=== PATIENT | male | born 1960 | race Caucasian/White ===

== ENCOUNTER 2021-05-29 11:41 | Inpatient (IN) ==
[2021-05-29 12:09] LABS: Basophils # (auto) 0.03 K/uL (0-0.2); Basophils % (auto) 0.3 %; Eosinophils # (auto) 0.17 K/uL (0-0.5); Eosinophils % (auto) 1.8 %; Hematocrit (blood only) 44.9 % (42-52); Hemoglobin 15.6 g/dL (14.0-18.0); Immature Granulocytes # (auto) 0.01 K/uL (0.00-0.02); Immature Granulocytes % (auto) 0.1 %; Lymphocytes % (auto) 12.6 %; Mean Corpuscular Hgb Conc 34.7 g/dL (32-36); Mean Corpuscular Volume 89.1 fL (80-100); Mean Platelet Volume 11.1 fL (7.4-10.4); Monocytes # (auto) 0.83 K/uL (0.11-0.59); Monocytes % (auto) 8.7 %; Neutrophils # (auto) 7.29 K/uL (1.4-6.5); Neutrophils % (auto) 76.5 %; Platelet Count 260 K/uL (130-400); RDW Coefficient of Variation 12.7 % (11.5-14.5); RDW Standard Deviation 40.8 fL (36.4-46.3); Red Blood Count 5.04 M/uL (4.7-6.1); White Blood Count 9.53 K/uL (4.8-10.8)
[2021-05-29] MEDS ORDERED: ASPIRIN CHEW 324 MG PO STA (12:22)
--- NOTE | 2021-05-29 12:22 | Emergency Department Note ---
Impression & Plan Pulmonary embolism and infarction, Chest pain, Abnormal ECG ED Provider Note NAME: BIANCA BROWNE AGE: 60 SEX: M : 1960 ARRIVES VIA: Walk-In INFORMANT: Patient ED PROVIDER(S): Feliz Jaime DO CHIEF COMPLAINT: Chest Pain HPI: Patient is a 60-year-old gentleman with no significant cardiac history the presents the ER for chest pain and back pain. Symptoms initially started this past Thursday and his right upper back. Going through till Thursday it wrapped around his chest and he had a tightness. Notes that pain has now dissipated and the worst of it was Thursday. He notes now he has pain with breathing. Denies any shortness of breath. No belly pain nausea vomiting or diarrhea. No dysuria urgency or frequency. He admits to chills and having fever 48 hours ago 100.4. No cough or runny nose. No other exacerbating or remitting factors. [facility]. He is fairly active with hiking and riding his bike. Moment does not get any chest pain. Patient denies diabetes, hypertension, hyperlipidemia, CAD, history of sudden at a young age, and smoking. Patient denies swelling of calves, recent trips, history of immobilization or recent surgery, prior history of DVT, hemoptysis, history of malignancy, or control/estrogen use. ROS: See above HPI for pertinent positives & negatives. A total of 10 systems reviewed and were otherwise negative. PAST MEDICAL HISTORY:See Below PAST SURGICAL HISTORY:See Below FAMILY HISTORY:See Below SOCIAL HISTORY:See Below HOME MEDICATIONS:See Below ALLERGIES:See Below VITALS:See Below PHYSICAL EXAMINATION: GENERAL: Sitting up in bed, alert, well appearing, well nourished, no distress, non-toxic EYE EXAM: normal conjunctiva. OROPHARYNX: no exudate, no erythema, lips, buccal mucosa, and tongue normal and mucous membranes are moist NECK: supple, no nuchal rigidity, no adenopathy, non-tender LUNGS: Clear to auscultation. Normal chest wall mechanics HEART: no murmurs, S1 normal and S2 normal ABDOMEN: abdomen soft, non-tender, normo-active bowel sounds, no masses, no rebound or guarding. UPPER EXTREMITIES: upper extremities are grossly normal. LOWER EXTREMITIES: No pitting edema. Calves are equal bilateral. NEURO EXAM: Normal sensorium, cranial nerves II-XII grossly intact, normal speech, no gross weakness of arms, no gross weakness of legs. MEDICAL DECISION MAKING: Patient is a 60-year-old gentleman the presents ER for right-sided chest pain wrapping around to his chest associate with chest heaviness which started this past weekend. Got worse on Thursday but now has been improving. IV was established blood work was obtained. Labs show no significant leukocytosis or anemia. BMP with mild hypokalemia 3.4. Chloride slightly elevated at 103. LFTs bilirubin was unremarkable. Troponin was negative. Covid was negative. CT angio of the chest shows bilateral PEs. Updated patient at bedside. Discussed the risk and benefits of heparin. He denies any bleeding risk factors which were reviewed at length with him at bedside by myself. He was placed on heparin and given heparin bolus. He was discussed with hospitalist admitted for further work-up. Triage Nursing notes reviewed. Limited review of prior medical records performed Vital Signs: reviewed and remarkable for no significant abnormalities Differential diagnosis: Differential diagnoses includes but is not limited to acute coronary syndrome, myocardial infarction, pericarditis, pulmonary embolus, aortic dissection, pneumonia, pneumothorax, musculoskeletal, shingles, esophageal. ER treatment provided: See below Diagnostics interpreted by me: ECG: Sinus rhythm rate 82 Normal axis T wave inversion in the inferior leads with ST depressions as well as T wave inversions in V4 through V6 with ST depressions. Cardiac Monitoring: An order was placed for continuous cardiac monitoring. The monitor shows a rate of 80 with sinus rhythm. Laboratory studies: As stated above and show below. Imaging studies: CT Angio of the chest shows bilateral PEs Consultation(s): none Critical Care: I have personally spent 35 minutes of critical care time in the direct management of this patient. This includes bedside care, interpretation of diagnostic studies, and testing, discussion with consultants, patient, and family members, and other required patient management activities. This 35 minutes is in excess of all separately billable procedures. Past Med/Surg History Medical History (Updated 05/29/21 @ 18:31 by Feliz Jaime DO) No active medical problems Surgical History History of appendectomy History of tonsillectomy and adenoidectomy Hx of vasectomy Family History (Updated 05/29/21 @ 15:34 by Bonnie Mendez PA-C) Father , 66 Lung cancer Mother Breast cancer Social History (Updated 05/29/21 @ 15:34 by Bonnie Mendez PA-C) Smoking Status: Never smoker Hx Alcohol Use: No Hx Substance Use: No Preferred Language: Malian Communication Ability: Effective marital status: Current Living Situation: Spouse current occupational status: employed Feels Safe at Home: Yes Allergies Allergies Allergy/AdvReac Type Severity Reaction Status Date / Time No Known Allergies Allergy Unverified 05/29/21 14:01 Home Meds Home Medications Medication Instructions Recorded Confirmed Tylenol Advil Caff 1 - 2 tabs PO UD PRN 05/29/21 05/29/21 Results & Data (ED) Vital Signs Vital Signs - 24 hr 05/29/21 11:41 05/29/21 11:43 05/29/21 11:49 Temperature 36.6 C Temperature Source Temporal Artery Scan Pulse Rate 80 Pulse Rate [Right] Pulse Rate from SpO2 Sensor Respiratory Rate 16 Respiratory Effort / Characteristics Non-Labored Respiratory Depth Normal Blood Pressure 152/84 H Blood Pressure [Left Arm] Blood Pressure Mean 106 Blood Pressure Mean [Left Arm] Blood Pressure Position [Left Arm] Pulse Oximetry 97 97 96 Oxygen Delivery Method Room Air Room Air Room Air Sepsis Recent Fever Within 48 Hours No Sepsis New/Unexplained Change in Mental Status No Sepsis Action Taken by Nursing No Action Required 05/29/21 11:52 05/29/21 11:54 05/29/21 12:00 Temperature Temperature Source Pulse Rate 79 75 Pulse Rate [Right] 90 Pulse Rate from SpO2 Sensor 79 73 Respiratory Rate 20 18 20 Respiratory Effort / Characteristics Non-Labored Respiratory Depth Normal Blood Pressure 139/93 123/71 Blood Pressure [Left Arm] 139/93 Blood Pressure Mean 108 88 Blood Pressure Mean [Left Arm] 108 Blood Pressure Position [Left Arm] Sitting Pulse Oximetry 97 97 97 Oxygen Delivery Method Room Air Room Air Sepsis Recent Fever Within 48 Hours Sepsis New/Unexplained Change in Mental Status Sepsis Action Taken by Nursing 05/29/21 12:30 05/29/21 13:00 05/29/21 13:33 Temperature Temperature Source Pulse Rate 72 72 69 Pulse Rate [Right] Pulse Rate from SpO2 Sensor 71 74 68 Respiratory Rate 21 23 18 Respiratory Effort / Characteristics Respiratory Depth Blood Pressure 140/87 137/83 Blood Pressure [Left Arm] Blood Pressure Mean 104 101 Blood Pressure Mean [Left Arm] Blood Pressure Position [Left Arm] Pulse Oximetry 97 96 97 Oxygen Delivery Method Sepsis Recent Fever Within 48 Hours Sepsis New/Unexplained Change in Mental Status Sepsis Action Taken by Nursing 05/29/21 13:42 05/29/21 14:22 05/29/21 14:30 Temperature Temperature Source Pulse Rate 70 80 75 Pulse Rate [Right] Pulse Rate from SpO2 Sensor 70 82 75 Respiratory Rate 19 20 20 Respiratory Effort / Characteristics Respiratory Depth Blood Pressure 121/79 Blood Pressure [Left Arm] Blood Pressure Mean 93 Blood Pressure Mean [Left Arm] Blood Pressure Position [Left Arm] Pulse Oximetry 97 97 97 Oxygen Delivery Method Sepsis Recent Fever Within 48 Hours Sepsis New/Unexplained Change in Mental Status Sepsis Action Taken by Nursing Laboratory Data Result diagrams: 05/29/21 11:55 05/29/21 11:55 Lab Results 05/29/21 05/29/21 05/29/21 Range/Units 11:55 11:55 11:55 WBC 9.53 (4.8-10.8) K/uL RBC 5.04 (4.7-6.1) M/uL Hgb 15.6 (14.0-18.0) g/dL Hct 44.9 (42-52) % MCV 89.1 (80-100) fL MCH 31.0 (25-34) pg MCHC 34.7 (32-36) g/dL RDW Std Deviation 40.8 (36.4-46.3) fL RDW Coeff of Ravin 12.7 (11.5-14.5) % Plt Count 260 (130-400) K/uL MPV 11.1 H (7.4-10.4) fL Immature Gran % (Auto) 0.1 % Neut % (Auto) 76.5 % Lymph % (Auto) 12.6 % Motley % (Auto) 8.7 % Eos % (Auto) 1.8 % Baso % (Auto) 0.3 % Neut # (Auto) 7.29 H (1.4-6.5) K/uL Lymph # (Auto) 1.20 (1.2-3.4) K/uL Motley # (Auto) 0.83 H (0.11-0.59) K/uL Eos # (Auto) 0.17 (0-0.5) K/uL Baso # (Auto) 0.03 (0-0.2) K/uL Immature Gran # (Auto) 0.01 (0.00-0.02) K/uL PT 10.1 (9.0-12.0) Seconds INR 1.0 (0.9-1.1) APTT 25.9 (21.0-31.0) Seconds PTT Ratio 1.0 D-Dimer 2700 H* (0-500) ug/L FEU Sodium 139 (136-145) mmol/L Potassium 3.4 L (3.5-5.1) mmol/L Chloride 108 H (98-107) mmol/L Carbon Dioxide 30 (21-32) mmol/L Anion Gap 1.0 L (3-11) BUN 15 (7-18) mg/dl Creatinine 0.92 (0.6-1.4) mg/dl Est Cr Clr Drug Dosing 84.7 ml/min Est GFR ( Amer) 105.9 ml/min Est GFR (Non-Af Amer) 91.4 ml/min BUN/Creatinine Ratio 16.3 (10-20) Glucose 132 H (70-99) mg/dl Calcium 9.2 (8.5-10.1) mg/dl Total Bilirubin 0.6 (0.2-1) mg/dl AST 12 L (15-37) U/L ALT 18 (12-78) U/L Alkaline Phosphatase 76 (45-117) U/L Troponin I < 0.015 (0-0.045) ng/ml Total Protein 7.4 (6.4-8.2) gm/dl Albumin 3.5 (3.4-5.0) gm/dl Globulin 3.9 (2.5-4.0) gm/dl Albumin/Globulin Ratio 0.9 (0.9-2) Administered Medications Heparin Sodium/Dextrose (Heparin Sodium/Dextrose) 25,000 units in 500 mls @ 26 mls/hr IV .[id number] [facility]; Protocol Stop: 06/28/21 14:14 Last Admin: 05/29/21 14:25 Dose: 1,300 units/hr, 26 mls/hr Documented by: [id number] Cosigned by: [id number] Discontinued Medications Aspirin (Aspirin Chew 324 Mg) 324 mg PO NOW STA Stop: 05/29/21 12:23 Last Admin: 05/29/21 12:27 Dose: 324 mg Documented by: [id number] Heparin Sodium (Porcine) (Heparin Sod (Porcine) 1000 Unit/Ml) 6,000 units IV NOW ONE Stop: 05/29/21 14:31 Last Admin: 05/29/21 14:22 Dose: 6,000 units Documented by: [id number] Cosigned by: [id number] Heparin Sodium/Dextrose (Heparin Iv Adult Wt-Based Standard With Bolus Protocol) 1 ea IV NOW STA; Protocol Stop: 05/29/21 14:00 Last Admin: 05/29/21 16:06 Dose: 1 ea Documented by: [id number] Ioversol (Optiray 320 125ml) 118 ml IV ONCE ONE Stop: 05/29/21 13:51 Last Admin: 05/29/21 13:51 Dose: 118 ml Documented by: [id number] Potassium Chloride (Potassium Chloride Crtab 20 Meq Tabcr) 40 meq PO NOW STA Stop: 05/29/21 15:57 Last Admin: 05/29/21 17:36 Dose: 40 meq Documented by: [id number] Imaging Data Radiologist's Impression: Chest X-Ray 05/29/21 11:59 XR chest 1V portable CLINICAL HISTORY: Chest Pain COMPARISON STUDY: No previous studies for comparison. FINDINGS: Lung volumes are normal. There is no pneumothorax. There may be a small right pleural effusion. Note is made of mild right lower lung airspace opacity. There is pulmonary vascular congestion. Cardiac size is normal. IMPRESSION: 1. Mild right lower lung airspace opacity. This favors an infectious process. Radiographic follow up to ensure resolution is recommended. 2. Pulmonary vascular congestion. Suspected small right pleural effusion. ACT 112: Negative or not required by law. Electronically signed by: Parveen Trujillo M.D. 05/29/2021 12:23 PM Chest CTA 05/29/21 13:21 CHEST CTA for PULMONARY ARTERIES CT DOSE: 464.79 mGycm HISTORY: Atypical chest pain with breathing abn ekg TECHNIQUE: Multiaxial CT images of the chest were performed following the intravenous administration of contrast to evaluate the pulmonary arteries. Maximal intensity projection images were also obtained. A dose lowering techniq ue was utilized adhering to the principles of ALARA. COMPARISON STUDY: Chest x-ray 05/29/2021. FINDINGS: Normal caliber thoracic aorta with no evidence for dissection. There is a small right pleural effusion. No pericardial effusions. No evidence for right-sided heart strain. Multiple pulmonary emboli seen within the right lower lobar and right lower lobe segmental/subsegmental pulmonary arteries. Small nonocclusive linear filling defect seen within the left lower lobe posterior basal pulmonary artery consistent with an additional pulmonary embolus. No pneumothorax. The central airways are patent. Mild nodular thickening along the major fissures which is likely benign. Groundglass and consolidative peripheral airspace opacities within the base the right lower lobe consistent with pulmonary infarcts. There is also a small focal peripheral airspace opacity within the left lower lobe posteriorly. This also favors a small pulmonary infarct. No fractures within the visualized osseous structures. A single mildly enlarged right hilar lymph node measuring 1 cm. This may be reactive. No mediastinal or left hilar lymphadenopathy. Normal esophagus. Limited views of the upper abdomen demonstrate a normal liver and spleen. IMPRESSION: 1. Bilateral lower lobe pulmonary emboli with associated pulmonary infarcts, right greater than left. 2. Small right pleural effusion. ACT 112: Negative or not required by law. Electronically signed by: Naresh Plunkett M.D. 05/29/2021 2:11 PM Discharge Plan Visit Data Chief Complaint: Chest Pain Stated Complaint: CHEST PAIN, ABNORMAL EKG ED Provider: Feliz Jaime Discharge Problem: Pulmonary embolism and infarction, Chest pain, Abnormal ECG Patient Disposition: Admitted As Inpatient Discharge Problem: Chest pain Qualifiers: Chest pain type: unspecified Qualified Code(s): R07.9 - Chest pain, unspecified
[2021-05-29 12:25] LABS: Partial Thromboplastin Time 25.9 Seconds (21.0-31.0); Prothrombin Time 10.1 Seconds (9.0-12.0)
--- NOTE | 2021-05-29 12:25 | XRay Report ---
XR chest 1V portable CLINICAL HISTORY: Chest Pain COMPARISON STUDY: No previous studies for comparison. FINDINGS: Lung volumes are normal. There is no pneumothorax. There may be a small right pleural effus ion. Note is made of mild right lower lung airspace opacity. There is pulmonary vascular congestion. Cardiac size is normal. IMPRESSION: 1. Mild right lower lung airspace opacity. This favors an infectious process. Radiographic follow up to ensure resolution is recommended. 2. Pulmonary vascular congestion. Suspected small right pleural effusion. ACT 112: Negative or not required by law. Electronically signed by: Parveen Trujillo M.D. 05/29/2021 12:23 PM
[2021-05-29 12:27] LABS: Alanine Aminotransferase 18 U/L (12-78); Albumin Level 3.5 gm/dl (3.4-5.0); Aspartate Aminotransferase 12 U/L (15-37); BUN Creatinine Ratio 16.3 (10-20); Blood Urea Nitrogen 15 mg/dl (7-18); Calcium 9.2 mg/dl (8.5-10.1); Carbon Dioxide 30 mmol/L (21-32); Chloride 108 mmol/L (98-107); Creatinine Clr Calc Pharmacy 84.7 ml/min; Est GFR (African American) 105.9 ml/min; Est GFR (Non-African American) 91.4 ml/min; Glucose 132 mg/dl (70-99); Potassium 3.4 mmol/L (3.5-5.1); Sodium 139 mmol/L (136-145)
[2021-05-29 12:31] LABS: Albumin Globulin Ratio 0.9 (0.9-2); Alkaline Phosphatase 76 U/L (45-117); Bilirubin,Total 0.6 mg/dl (0.2-1); Globulin 3.9 gm/dl (2.5-4.0); Total Protein 7.4 gm/dl (6.4-8.2); Troponin I < 0.015 ng/ml (0-0.045)
[2021-05-29 13:42] LABS: D Dimer 2700 ug/L FEU (0-500)
[2021-05-29] MEDS ORDERED: OPTIRAY 320 125ml IV ONE (13:50)
[2021-05-29] MEDS ORDERED: Heparin IV Adult Wt-Based Standard WITH Bolus Protocol IV STA (13:59)
--- NOTE | 2021-05-29 14:13 | CT Scan Report ---
CHEST CTA for PULMONARY ARTERIES CT DOSE: 464.79 mGycm HISTORY: Atypical chest pain with breathing abn ekg TECHNIQUE: Multiaxial CT images of the chest were performed following the intravenous administration of contrast to evaluate the pulmonary arteries. Maximal intensity projection images were also obtaine d. A dose lowering technique was utilized adhering to the principles of ALARA. COMPARISON STUDY: Chest x-ray 05/29/2021. FINDINGS: Normal caliber thoracic aorta with no evidence for dissection. There is a small right pleur al effusion. No pericardial effusions. No evidence for right-sided heart strain. Multiple pulmonary e mboli seen within the right lower lobar and right lower lobe segmental/subsegmental pulmonary arterie s. Small nonocclusive linear filling defect seen within the left lower lobe posterior basal pulmonary artery consistent with an additional pulmonary embolus. No pneumothorax. The central airways are pat ent. Mild nodular thickening along the major fissures which is likely benign. Groundglass and consoli dative peripheral airspace opacities within the base the right lower lobe consistent with pulmonary i nfarcts. There is also a small focal peripheral airspace opacity within the left lower lobe posterior ly. This also favors a small pulmonary infarct. No fractures within the visualized osseous structures . A single mildly enlarged right hilar lymph node measuring 1 cm. This may be reactive. No mediastina l or left hilar lymphadenopathy. Normal esophagus. Limited views of the upper abdomen demonstrate a n ormal liver and spleen. IMPRESSION: 1. Bilateral lower lobe pulmonary emboli with associated pulmonary infarcts, right greater than left. 2. Small right pleural effusion. ACT 112: Negative or not required by law. Electronically signed by: Naresh Plunkett M.D. 05/29/2021 2:11 PM
[2021-05-29] MEDS ORDERED: HEPARIN SOD (PORCINE) 1000 UNIT/ML IV ONE ×2 (14:14→14:30)
[2021-05-29] MEDS: HEPARIN SODIUM/DEXTROSE 25,000 UNITS/500 ML BAG IV SCH (14:25)
--- NOTE | 2021-05-29 14:54 | History & Physical Report ---
Date of Service May 29, 2021 Assessment & Plan (1) Pulmonary embolism and infarction: (2) Chest pain: (3) Abnormal ECG: (4) Hypokalemia: Plan: Admit to PCU IV Heparin Bolus and gtt started obtain echocardiogram consult pulmonary 12/18 to infarcts discussed with patient regarding warfarin vs DOACS, wishes to pursue DOAC if able will need hypercoagulable work up with hematology as outpt is up to date with colonoscopy 03/2014 add psa to a.m. labs replete potassium with 40meq KCL ecg abnormal - compared to ecg 10/2013 appears similar Dispo: PCU PCP: Dr. Ramez Phelps FULL CODE Pt was seen and examined in collaboration with Dr. Spencer, please see addendum History of Present Illness Chief Complaint: Right-sided chest pain x5 days. Primary Care Provider: Lissett Phelps DO This is a 60-year-old otherwise healthy male who has no significant past medical history and presents to ED secondary to right-sided chest pain x5 days. Symptoms started on Thursday when he was unable to sleep. When he did go to lay down he noticed a sharp pain on the right lateral side of his chest. Pain was made better with sitting up. Pain persisted for the next 2 days and then migrated to the right anterior chest wall. He also complained of pain with deep breathing. He thought maybe he, pulled or strained something," but there was no trauma. Yesterday he noticed he had a fever of 100.4. He has been fully vaccinated for Covid since March 29. He was concerned maybe he had a variant of Covid despite being vaccinated secondary to fever and also complained of being sweaty and body aches. He was to go back to work today but woke up with significant right-sided shoulder pain, sweating and opted to seek urgent care. He was directed to ED. In ED he remained hemodynamically stable saturating normally on room air. His CBC was generally unremarkable. He had elevated D- dimer at 2700. His potassium was mildly low at 3.4. His troponin was normal. His chest CTA was consistent with bilateral lower lobe pulmonary emboli with associated pulmonary infarcts, right greater than left and small right pleural effusion. He was appropriate started on IV heparin and recommended for admission. Currently he denies any fever, chills, sweats, lightheadedness, dizziness, syncope, chest pain at rest, shortness of breath, cough, hemoptysis, nausea, vomiting, abdominal pain, change in his bowel or urinary habits. His appetite is otherwise been normal. Patient is very healthy at baseline and he does not take any prescription medications. He is very active with hiking, hunting and mountain biking. Even despite having a right shoulder and chest wall pain he was still able to do outside yard work, cleanup storm damage and take out the trash. He denies any known clotting disorder. He he thinks his sister remotely had a clotting issue and was on Coumadin in the past but is not entirely sure. He has not seen PCP in few years but is up-to-date with his colonoscopy. He has not had a PSA screening since 2012 Allergies Allergy/AdvReac Type Severity Reaction Status Date / Time No Known Allergies Allergy Unverified 05/29/21 14:01 Home Medications Medication Instructions Recorded Confirmed Type Tylenol Advil Caff 1 - 2 tabs PO UD PRN 05/29/21 05/29/21 History Past Med/Surg History Medical History (Updated 05/29/21 @ 18:31 by Feliz Jaime DO) No active medical problems Surgical History History of appendectomy History of tonsillectomy and adenoidectomy Hx of vasectomy Family History (Updated 05/29/21 @ 15:34 by Bonnie Mendez PA-C) Father , 66 Lung cancer Mother Breast cancer Social History (Updated 05/29/21 @ 15:34 by Bonnie Mendez PA-C) Smoking Status: Never smoker Second Hand Exposure: Yes (father smoked in child de anda); Do You Dip or Chew Tobacco: No; Tobacco Cessation Education Requested by Patient: No Hx Alcohol Use: Yes Alcohol type: wine Hx Substance Use: No Preferred Language: Slovenian Communication Ability: Effective Discovery Manager Required: No Beliefs That Will Affect Care: None marital status: Current Living Situation: Spouse current occupational status: employed Other Information That Helps Us Care for You: No Feels Safe at Home: Yes Safety Concerns: Feels Safe At This Time Assistive Devices: Glasses Review of Systems Review of Systems: All systems reviewed & are unremarkable except as noted in HPI & below Physical Exam Physical Exam: Constitutional: WD/WN, vitals as above, NAD, sitting up in bed, pleasant, conversing easily Head: Normocephalic, Atraumatic Eyes: PERRL, conjunctivae normal, anicteric sclerae ENMT: external ear and nose normal, oropharynx normal Neck: trachea midline, no thyromegaly normal visual inspection Respiratory: normal respiratory effort, lungs clear to auscultation, no wheeze, rales, rhonchi. Normal insp/exp effort, no accessory muscle use Cardiovascular: RRR, no murmur, no edema Vessels: no JVD or carotid bruit Chest: normal inspection of chest Abdomen: normal bowel sounds, soft, nontender, no hepatosplenomegaly Musculoskeletal: no cyanosis or clubbing, extremities motor strength 5/5 Skin: no rashes, warm and dry normal turgor Neurologic: PERRL, EOMI, accommodation nl, no face palsy, no dysarthria CN's II-XI intact bilaterally and moves all extremities Psychiatric: A+Ox3, euthymic affect Lymphatic: no cervical or axillary lymphadenopathy : deferred Results & Data Results & Data ([facility]) Vital Signs (Past 12 Hours) Vital Signs Temp Pulse Pulse Resp BP BP Pulse Ox 05/29/21 12:30 72 21 140/87 97 05/29/21 12:00 75 20 123/71 97 05/29/21 11:54 90 18 139/93 97 05/29/21 11:52 79 20 139/93 97 05/29/21 11:49 96 05/29/21 11:43 36.6 C 80 16 152/84 H 97 05/29/21 11:41 97 Diagnostic Findings Chest X-Ray 05/29/21 11:59 XR chest 1V portable CLINICAL HISTORY: Chest Pain COMPARISON STUDY: No previous studies for comparison. FINDINGS: Lung volumes are normal. There is no pneumothorax. There may be a small right pleural effusion. Note is made of mild right lower lung airspace opacity. There is pulmonary vascular congestion. Cardiac size is normal. IMPRESSION: 1. Mild right lower lung airspace opacity. This favors an infectious process. Radiographic follow up to ensure resolution is recommended. 2. Pulmonary vascular congestion. Suspected small right pleural effusion. ACT 112: Negative or not required by law. Electronically signed by: Parveen Trujillo M.D. 05/29/2021 12:23 PM Chest CTA 05/29/21 13:21 CHEST CTA for PULMONARY ARTERIES CT DOSE: 464.79 mGycm HISTORY: Atypical chest pain with breathing abn ekg TECHNIQUE: Multiaxial CT images of the chest were performed following the intravenous administration of contrast to evaluate the pulmonary arteries. Maximal intensity projection images were also obtained. A dose lowering technique was utilized adhering to the principles of ALARA. COMPARISON STUDY: Chest x-ray 05/29/2021. FINDINGS: Normal caliber thoracic aorta with no evidence for dissection. There is a small right pleural effusion. No pericardial effusions. No evidence for right-sided heart strain. Multiple pulmonary emboli seen within the right lower lobar and right lower lobe segmental/subsegmental pulmonary arteries. Small nonocclusive linear filling defect seen within the left lower lobe posterior basal pulmonary artery consistent with an additional pulmonary embolus. No pneumothorax. The central airways are patent. Mild nodular thickening along the major fissures which is likely benign. Groundglass and consolidative peripheral airspace opacities within the base the right lower lobe consistent with pulmonary infarcts. There is also a small focal peripheral airspace opacity within the left lower lobe posteriorly. This also favors a small pulmonary infarct. No fractures within the visualized osseous structures. A single mildly enlarged right hilar lymph node measuring 1 cm. This may be reactive. No mediastinal or left hilar lymphadenopathy. Normal esophagus. Limited views of the upper abdomen demonstrate a normal liver and spleen. IMPRESSION: 1. Bilateral lower lobe pulmonary emboli with associated pulmonary infarcts, right greater than left. 2. Small right pleural effusion. ACT 112: Negative or not required by law. Electronically signed by: Naresh Plunkett M.D. 05/29/2021 2:11 PM Medications Administered Medication List Heparin Sodium/Dextrose (Heparin Sodium/Dextrose) 25,000 units in 500 mls @ 26 mls/hr IV .[id number] [facility]; Protocol Stop: 06/28/21 14:14 Last Admin: 05/29/21 14:25 Dose: 1,300 units/hr, 26 mls/hr Documented by: [id number] Cosigned by: [id number] Discontinued Medications Aspirin (Aspirin Chew 324 Mg) 324 mg PO NOW STA Stop: 05/29/21 12:23 Last Admin: 05/29/21 12:27 Dose: 324 mg Documented by: [id number] Heparin Sodium (Porcine) (Heparin Sod (Porcine) 1000 Unit/Ml) 6,000 units IV NOW ONE Stop: 05/29/21 14:31 Last Admin: 05/29/21 14:22 Dose: 6,000 units Documented by: [id number] Cosigned by: [id number] Ioversol (Optiray 320 125ml) 118 ml IV ONCE ONE Stop: 05/29/21 13:51 Last Admin: 05/29/21 13:51 Dose: 118 ml Documented by: [id number] ECG Rate (beats per minute): 82 Rhythm: sinus with SA Findings: + ST depression (inferior and laterally) and + T-wave inversion COVID-19 Results Results COVID-19 Adm Lab Results: RBC 5.04 M/uL (4.7-6.1) 05/29/21 WBC 9.53 K/uL (4.8-10.8) 05/29/21 Hgb 15.6 g/dL (14.0-18.0) 05/29/21 Hct 44.9 % (42-52) 05/29/21 Plt Count 260 K/uL (130-400) 05/29/21 Neutrophils (%) (Auto) 76.5 % 05/29/21 Lymphocytes (%) (Auto) 12.6 % 05/29/21 Monocytes # (Auto) 0.83 K/uL (0.11-0.59) H 05/29/21 Eosinophils # (Auto) 0.17 K/uL (0-0.5) 05/29/21 Immature Granulocyte % (Auto) 0.1 % 05/29/21 Neutrophils # (Auto) 7.29 K/uL (1.4-6.5) H 05/29/21 Lymphocytes # (Auto) 1.20 K/uL (1.2-3.4) 05/29/21 Monocytes # (Auto) 0.83 K/uL (0.11-0.59) H 05/29/21 Eosinophils # (Auto) 0.17 K/uL (0-0.5) 05/29/21 Basophils # (Auto) 0.03 K/uL (0-0.2) 05/29/21 Immature Granulocyte # (Auto) 0.01 K/uL (0.00-0.02) 05/29/21 Na 139 mmol/L (136-145) 05/29/21 K 3.4 mmol/L (3.5-5.1) L 05/29/21 Cl 108 mmol/L (98-107) H 05/29/21 CO2 30 mmol/L (21-32) 05/29/21 Anion Gap 1.0 (3-11) L 05/29/21 BUN 15 mg/dl (7-18) 05/29/21 Creatinine 0.92 mg/dl (0.6-1.4) 05/29/21 BUN/Creatinine Ratio 16.3 (10-20) 05/29/21 Glucose Level 132 mg/dl (70-99) H 05/29/21 Ca 9.2 mg/dl (8.5-10.1) 05/29/21 Total Bilirubin 0.6 mg/dl (0.2-1) 05/29/21 AST/SGOT 12 U/L (15-37) L 05/29/21 ALT/SGPT 18 U/L (12-78) 05/29/21 Alkaline Phosphatase 76 U/L (45-117) 05/29/21 Total Protein 7.4 gm/dl (6.4-8.2) 05/29/21 Albumin 3.5 gm/dl (3.4-5.0) 05/29/21 Globulin 3.9 gm/dl (2.5-4.0) 05/29/21 Albumin/Globulin Ratio 0.9 (0.9-2) 05/29/21 Troponin I < 0.015 ng/ml (0-0.045) 05/29/21 D-Dimer 2700 ug/L FEU (0-500) H* 05/29/21 PTT 25.9 Seconds (21.0-31.0) 05/29/21 INR 1.0 (0.9-1.1) 05/29/21 COVID-19 PCR NEGATIVE (Negative) 05/29/21 Chest X-Ray 05/29/21 Code Status & VTE Plan Code Status Full Code VTE Prophylaxis Plan VTE Prophylaxis will be ordered: No Supervising Physician Co-Signing Physician Notes Patient is a 60-year-old male with no significant past medical history presents with history of right-sided chest pain since 5 days duration. He also states having poor sleep secondary to the pain. Chest pain is positional, pleuritic in nature. Reports associated fever, diaphoresis. Please review HPI for complete details of presentation. He was noted to have bilateral pulmonary emboli, pulmonary infarcts on CTA. Denies any history of bleeding. On exam patient is moderately built and nourished, no apparent distress, normocephalic atraumatic, lungs are clear to auscultation, normal breath sounds, S1-S2, no murmur, abdomen soft, nontender, normal bowel sounds, alert, awake, oriented, grossly no focal deficits, no pedal edema. Patient is admitted for management of acute pulmonary embolism, infarcts, hypokalemia. Agree with starting IV heparin for now. Also noted abnormal EKG. Will trend cardiac enzymes, chest resting echo and repeat EKG in the morning. I personally reviewed the record. Patient is interviewed and examined at bedside. Patient's care is coordinated with Bonnie Mendez PA-C. Please refer to the documentation above for details of patient's presentation and for discussion of other issues.
[2021-05-29] MEDS ORDERED: POTASSIUM CHLORIDE CRTAB 20 MEQ TABCR PO STA (15:56)
--- NOTE | 2021-05-29 17:14 | Electrocardiogram Report ---
Test Reason : Blood Pressure : / mmHG Vent. Rate : 082 BPM Atrial Rate : 082 BPM P-R Int : 146 ms QRS Dur : 078 ms QT Int : 390 ms P-R-T Axes : 077 014 240 degrees QTc Int : 455 ms Sinus rhythm with marked sinus arrhythmia Abnormal ECG No previous ECGs available Confirmed by Sarbjit Philip ([id number]) on 05/29/2021 5:14:14 PM Referred By: REFERRED SELF Confirmed By:Kevin Philip
[2021-05-29] MEDS ORDERED: ACETAMINOPHEN 325 MG TAB PO PRN (19:15)
[2021-05-29] MEDS ORDERED: MAGNESIUM HYDROXIDE SUSP 30 ML UDC PO PRN (19:15)
[2021-05-29] MEDS ORDERED: ONDANSETRON INJ 2 MG/ML 2 ML VIAL IV PRN (19:15)
[2021-05-29] MEDS ORDERED: ALUMINUM/MAGNESIUM SUSP 30 ML UDC PO PRN (19:15)
[2021-05-29] MEDS ORDERED: POLYETHYLENE (MIRALAX) 17 GM PACK PO PRN (19:15)
[2021-05-29 20:44] LABS: Partial Thromboplastin Ratio 2.3
[2021-05-29 20:48] LABS: Partial Thromboplastin Time 61.8 Seconds (21.0-31.0)
--- NOTE | 2021-05-29 21:24 | Ultrasound Report ---
ULTRASOUND BILATERAL LOWER EXTREMITY VENOUS CLINICAL HISTORY: Pulmonary embolus. COMPARISON STUDY: No priors. TECHNIQUE: Real-time, grayscale, and color Doppler sonography of the deep veins of the right and left lower extremity was performed from the inguinal crease to the calf. Compression and augmentation wer e utilized. FINDINGS: There is no sonographic evidence of deep venous thrombosis identified in the right or left lower extremity. The common femoral, superficial femoral, and popliteal veins are patent and normally compressible bilaterally. The greater saphenous vein and the profunda femoris vein at the junction w ith the common femoral vein are clear in both legs. The visualized calf veins are patent bilaterally. A popliteal cyst on the right measures 2.3 x 0.7 x 1.1 cm. IMPRESSION: 1. There is no sonographic evidence of deep venous thrombosis identified in the right or left lower e xtremity. 2. Small right-sided Wylie's cyst. ACT 112: Negative or not required by law. Electronically signed by: Erick Hernandez M.D. 05/29/2021 9:23 PM
[2021-05-30 05:52] LABS: Hematocrit (blood only) 42.9 % (42-52); Hemoglobin 15.2 g/dL (14.0-18.0); Mean Corpuscular Hgb Conc 35.4 g/dL (32-36); Mean Corpuscular Volume 87.6 fL (80-100); Mean Platelet Volume 10.9 fL (7.4-10.4); Platelet Count 239 K/uL (130-400); RDW Coefficient of Variation 12.5 % (11.5-14.5); RDW Standard Deviation 40.2 fL (36.4-46.3); White Blood Count 9.71 K/uL (4.8-10.8)
[2021-05-30 06:18] LABS: Albumin Level 3.2 gm/dl (3.4-5.0); BUN Creatinine Ratio 17.1 (10-20); Bilirubin,Total 0.7 mg/dl (0.2-1); Calcium 8.8 mg/dl (8.5-10.1); Creatinine Clr Calc Pharmacy 96.2 ml/min; Est GFR (African American) 113.5 ml/min; Magnesium 2.1 mg/dl (1.8-2.4); Potassium 3.9 mmol/L (3.5-5.1)
[2021-05-30 06:20] LABS: Partial Thromboplastin Ratio 2.2
[2021-05-30 06:21] LABS: Albumin Globulin Ratio 0.8 (0.9-2); Globulin 3.8 gm/dl (2.5-4.0); Prostate Specific Antigen 3.98 ng/ml (0-4)
[2021-05-30 06:28] LABS: Partial Thromboplastin Time 56.9 Seconds (21.0-31.0)
[2021-05-30 07:42] LABS: Estimated Average Glucose 100 mg/dl; Hemoglobin A1C 5.1 % (4.5-5.6)
--- NOTE | 2021-05-30 08:26 | Pulmonary Consultation ---
Date of Consultation May 30, 2021 Assessment & Plan (1) Pulmonary embolism and infarction: Impression: 60-year-old male with idiopathic PE and likely pulmonary infarct. He is hemodynamically stable and requires no supplemental oxygen. Given his family history, thrombophilia is likely. There do not appear to be clear provoking events. Recommendations: 1. Acute PE: Agree with anticoagulation. The patient is currently on heparin. Can consider transition to DOAC or Coumadin based on cost and patient preference. Would recommend least 6 months of anticoagulation. 2. Pulmonary infarct: Would recommend a follow-up noncontrast CT of the chest in 6 to 8 weeks to ensure resolution of the lower lobe airspace opacity. 3. Likely hypercoagulable state: We will check factor V Leiden, homocystine, and prothrombin gene mutation. The rest of his thrombophilia panel can be assessed once he is off anticoagulation. Outpatient hematology oncology consultation may be appropriate. His age-appropriate cancer screening appears to be up-to-date. Obtaining additional information from his sister may be beneficial. 4. Pain control with nonsteroidal anti-inflammatories as needed. 5. The patient appears to be doing quite well clinically. From a pulmonary standpoint can likely be dismissed from the hospital once outpatient follow-up is arranged with his primary care provider and he has appropriate anticoagulation plan in place. We would be happy to see him back in the pulmonary clinic for his follow-up CT scans with a pulmonary infarct if needed. Thanks for the opportunity participating in the care of this patient. Feel free to contact us if we can be of additional assistance. (2) Chest pain: Chest pain type: unspecified Qualified Code(s): R07.9 - Chest pain, unspecified History of Present Illness Attending Physician: Apollo Spencer MD History of Present Illness Asked by hospitalist to evaluate this patient with PE and pulmonary infarct. History is obtained from review electronic medical record as well as discussion with the patient. Patient is a 60-year-old male who presented to the emergency room yesterday with about 5-day history of right-sided chest discomfort radiating to the front and up to the shoulder. He was studied in the emergency room with a CT angiogram demonstrating significant filling defects on the right side with peripheral pleural-based opacity suggestive of pulmonary infarct. He was admitted and placed on heparin. He is been hemodynamically stable. He is never required supplemental oxygen. Patient reports that his sister has a clotting disorder although he is unclear what her diagnosis is. She is apparently been on anticoagulation previously and reportedly had what sounds like IVC filter placed. The patient has no prior history of bleeding or clotting diathesis. He is relatively healthy and takes no medications on a regular basis. He had a colonoscopy performed about a years ago which reportedly was negative. He is a non-smoker. He did travel to [place] by car back in April but states that it took 2 days to get down there and he was out walking around frequently. No other prolonged immobilization. No history of trauma. The patient denies any syncope presyncope or episodes of graying out. No palpitations. He denies calf pain or swelling. Allergies Allergy/AdvReac Type Severity Reaction Status Date / Time No Known Allergies Allergy Unverified 05/29/21 14:01 Home Medications Medication Instructions Recorded Confirmed Type Tylenol Advil Caff 1 - 2 tabs PO UD PRN 05/29/21 05/29/21 History Patient History Medical History (Updated 05/29/21 @ 18:31 by Feliz Jaime DO) No active medical problems Surgical History History of appendectomy History of tonsillectomy and adenoidectomy Hx of vasectomy Family History (Updated 05/29/21 @ 15:34 by Bonnie Mendez PA-C) Father , 66 Lung cancer Mother Breast cancer Social History (Updated 05/29/21 @ 15:34 by Bonnie Mendez PA-C) Smoking Status: Never smoker Second Hand Exposure: Yes (father smoked in child de anda); Do You Dip or Chew Tobacco: No; Tobacco Cessation Education Requested by Patient: No Hx Alcohol Use: Yes Alcohol type: wine Hx Substance Use: No Preferred Language: Croatian Communication Ability: Effective Software Architect Required: No Beliefs That Will Affect Care: None marital status: Current Living Situation: Spouse current occupational status: employed Other Information That Helps Us Care for You: No Feels Safe at Home: Yes Safety Concerns: Feels Safe At This Time Assistive Devices: Glasses Review of Systems Review of Systems: All systems reviewed & are unremarkable except as noted in HPI & below Physical Exam Constitutional: WD/WN, vitals as above Neck: trachea midline, no thyromegaly Respiratory: normal respiratory effort, lungs clear to auscultation Cardiovascular: RRR, no murmur, no edema Gastrointestinal (Abdomen): normal bowel sounds, soft, nontender, no hepatosplenomegaly Musculoskeletal: Extremities: extremities normal to inspection Skin: no rashes, warm and dry Neurologic: Nonfocal exam Lymphatic: no cervical lymphadenopathy Results & Data Results & Data ([facility]) Vital Signs (Past 12 Hours) Vital Signs Temp Pulse Pulse Resp BP BP Pulse Ox 05/30/21 07:53 37.0 C 66 19 118/74 98 05/30/21 07:00 82 05/30/21 03:47 36.8 C 70 18 114/69 94 05/29/21 23:50 36.9 C 79 18 125/75 98 05/29/21 23:11 72 16 113/79 95 05/29/21 20:24 73 18 113/75 96 Laboratory Results 05/30/21 05:22 05/30/21 05:22 Troponin negative x3 Diagnostic Findings Duplex ultrasound of the lower extremities negative. CT angiogram was independently reviewed. CHEST CTA for PULMONARY ARTERIES CT DOSE: 464.79 mGycm HISTORY: Atypical chest pain with breathing abn ekg TECHNIQUE: Multiaxial CT images of the chest were performed following the intravenous administration of contrast to evaluate the pulmonary arteries. Maximal intensity projection images were also obtained. A dose lowering technique was utilized adhering to the principles of ALARA. COMPARISON STUDY: Chest x-ray 05/29/2021. FINDINGS: Normal caliber thoracic aorta with no evidence for dissection. There is a small right pleural effusion. No pericardial effusions. No evidence for right-sided heart strain. Multiple pulmonary emboli seen within the right lower lobar and right lower lobe segmental/subsegmental pulmonary arteries. Small non occlusive linear filling defect seen within the left lower lobe posterior basal pulmonary artery consistent with an additional pulmonary embolus. No pneumothorax. The central airways are patent. Mild nodular thickening along the major fissures which is likely benign. Groundglass and consolidative peripheral airspace opacities within the base the right lower lobe consistent with pulmonary infarcts. There is also a small focal peripheral airspace opacity within the left lower lobe posteriorly. This also favors a small pulmonary infarct. No fractures within the visualized osseous structures. A single mildly enlarged right hilar lymph node measuring 1 cm. This may be reactive. No mediastinal or left hilar lymphadenopathy. Normal esophagus. Limited views of the upper abdomen demonstrate a normal liver and spleen. IMPRESSION: 1. Bilateral lower lobe pulmonary emboli with associated pulmonary infarcts, right greater than left. 2. Small right pleural effusion. PG Care Time/CCT Total # of Minutes Spent Total Time Spent with Patient: Total time spent is greater than 50% in coordination of care (as documented) at patient's floor/unit and/or counseling patient: Coding Level of Care Code 33105 Inpt Consult Level 5 Diagnoses Pulmonary embolism and infarction I26.99 Chest pain R07.9 Chest pain type: unspecified Time Spent (min) 45
[2021-05-30] MEDS: HEPARIN SODIUM/DEXTROSE 25,000 UNITS/500 ML BAG IV SCH (10:04)
--- NOTE | 2021-05-30 14:33 | Hospitalist Progress Note ---
Date of Service May 30, 2021 Assessment & Plan (1) Pulmonary embolism and infarction: Plan: Acute Bilateral Pulmonary Embolism Pulmonary Infarct -CTA:Bilateral lower lobe pulmonary emboli with associated pulmonary infarcts, right greater than left. Small right pleural effusion. -Venous Doppler:There is no sonographic evidence of deep venous thrombosis identified in the right or left lower extremity. Small right-sided Wylie's cyst. -Factor V Leiden, homocystine and prothrombin gene mutation pending Continue IV heparin for now Plan to transition to Eliquis tomorrow ECHO: EF 55 to 60%. No evidence of pulmonary hypertension. No wall motion abnormality noted. Saturating well on room air Oxygen PRN Complete hypercoagulable work up as outpatient when off anticoagulation Appreciate Pulmonology Input Needs repeat CT of chest in 6-8 weeks Will need hematology oncology evaluation as outpatient Hypokalemia resolved Replace electrolytes as needed DVT Px: IV Heparin CODE STATUS Full code Disposition Expected discharge home Admission and Anticipated Discharge Date Admission Date: May 29, 2021 Review of Systems Review of Systems: All systems reviewed & are unremarkable except as noted in Subjective Physical Exam Physical Exam: Physical Exam: Vitals signs as noted above General Appearance:Moderately built and nourished, no apparent distress Head: normocephalic, Atraumatic Eyes: normal inspection, EOMI Neck: supple, Trachea midline Respiratory/Chest: Normal breath sounds, CTA, No accessory muscle use Cardiovascular: S1, S2, No murmur Abdomen/GI:Soft, Non tender, Bowel sounds present Extremities/Musculoskeletal:normal inspection, no edema Neurologic/Psych:AAOX3, grossly no focal neurological deficits Skin: normal color, warm Results & Data Results & Data ([facility]) Vital Signs (Past 12 Hours) Vital Signs Temp Pulse Pulse Resp BP Pulse Ox 05/30/21 12:08 36.6 C 81 19 117/73 96 05/30/21 07:53 37.0 C 66 19 118/74 98 05/30/21 07:00 82 05/30/21 03:47 36.8 C 70 18 114/69 94 Laboratory Results Short CBC 05/30/21 Range/Units 05:22 WBC 9.71 (4.8-10.8) K/uL Hgb 15.2 (14.0-18.0) g/dL Hct 42.9 (42-52) % Plt Count 239 (130-400) K/uL BMP 05/30/21 05:22 Sodium 139 Potassium 3.9 Chloride 108 H Carbon Dioxide 27 BUN 14 Creatinine 0.81 Glucose 91 Calcium 8.8 Cardiac Enzymes 05/29/21 05/30/21 Range/Units 18:38 00:14 Troponin I < 0.015 < 0.015 (0-0.045) ng/ml Liver Function 05/30/21 Range/Units 05:22 Total Bilirubin 0.7 (0.2-1) mg/dl AST 10 L (15-37) U/L ALT 18 (12-78) U/L Alkaline Phosphatase 76 (45-117) U/L Albumin 3.2 L (3.4-5.0) gm/dl
--- NOTE | 2021-05-30 16:44 | Electrocardiogram Report ---
Test Reason : Blood Pressure : / mmHG Vent. Rate : 073 BPM Atrial Rate : 073 BPM P-R Int : 140 ms QRS Dur : 074 ms QT Int : 408 ms P-R-T Axes : -07 006 235 degrees QTc Int : 449 ms Sinus rhythm with occasional PACs Marked ST abnormality, possible anterior subendocardial injury Abnormal ECG When compared with ECG of 29-MAY-2021 11:49, No significant change was found Confirmed by Sarbjit Philip ([id number]) on 05/30/2021 4:44:45 PM Referred By: REFERRED SELF Confirmed By:Kevin Philip
[2021-05-31] MEDS: HEPARIN SODIUM/DEXTROSE 25,000 UNITS/500 ML BAG IV SCH (04:35)
[2021-05-31 06:03] LABS: Hematocrit (blood only) 42.5 % (42-52); Hemoglobin 14.2 g/dL (14.0-18.0); Mean Corpuscular Hemoglobin 30.1 pg (25-34); Mean Corpuscular Hgb Conc 33.4 g/dL (32-36); Platelet Count 262 K/uL (130-400); RDW Coefficient of Variation 12.6 % (11.5-14.5); RDW Standard Deviation 41.3 fL (36.4-46.3); Red Blood Count 4.72 M/uL (4.7-6.1); White Blood Count 7.99 K/uL (4.8-10.8)
[2021-05-31 06:22] LABS: BUN Creatinine Ratio 13.8 (10-20); Calcium 8.5 mg/dl (8.5-10.1); Creatinine Clr Calc Pharmacy 90.6 ml/min; Est GFR (African American) 110.8 ml/min; Est GFR (Non-African American) 95.6 ml/min; Potassium 3.8 mmol/L (3.5-5.1)
[2021-05-31 06:28] LABS: Partial Thromboplastin Ratio 2.3
[2021-05-31 06:41] LABS: Partial Thromboplastin Time 59.8 Seconds (21.0-31.0)
[2021-05-31] MEDS ORDERED: APIXABAN 5 MG TABLET PO SCH (09:00)
--- NOTE | 2021-05-31 10:11 | Hospitalist Progress Note ---
Date of Service May 31, 2021 Assessment & Plan (1) Pulmonary embolism and infarction: Plan: Acute Bilateral Pulmonary Embolism Pulmonary Infarct -CTA:Bilateral lower lobe pulmonary emboli with associated pulmonary infarcts, right greater than left. Small right pleural effusion. -Venous Doppler:There is no sonographic evidence of deep venous thrombosis identified in the right or left lower extremity. Small right-sided Wylie's cyst. -Factor V Leiden, homocystine and prothrombin gene mutation pending ECHO: EF 55 to 60%. No evidence of pulmonary hypertension. No wall motion abnormality noted. Saturating well on room air Oxygen PRN Complete hypercoagulable work up as outpatient when off anticoagulation Appreciate Pulmonology Input Needs repeat CT of chest in 6-8 weeks Will need hematology oncology evaluation as outpatient Discontinue IV Heparin Started on Eliquis Hypokalemia resolved Replace electrolytes as needed DVT Px: IV Heparin CODE STATUS Full code Disposition Expected discharge home Admission and Anticipated Discharge Date Admission Date: May 29, 2021 Subjective Patient is seen and examined at bedside Pleuritic chest pain continues to improve No new complaints Denies dyspnea, dizziness, nausea, abdominal pain, bleeding Review of Systems Review of Systems: All systems reviewed & are unremarkable except as noted in Subjective Physical Exam Physical Exam: Physical Exam: Vitals signs as noted above General Appearance:Moderately built and nourished, no apparent distress Head: normocephalic, Atraumatic Eyes: normal inspection, EOMI Neck: supple, Trachea midline Respiratory/Chest: Normal breath sounds, CTA, No accessory muscle use Cardiovascular: S1, S2, No murmur Abdomen/GI:Soft, Non tender, Bowel sounds present Extremities/Musculoskeletal:normal inspection, no edema Neurologic/Psych:AAOX3, grossly no focal neurological deficits Skin: normal color, warm Results & Data Results & Data ([facility]) Vital Signs (Past 12 Hours) Vital Signs Temp Pulse Pulse Resp BP BP Pulse Ox 05/31/21 07:44 36.8 C 70 17 114/72 95 05/31/21 07:00 68 05/31/21 03:38 36.7 C 69 20 103/67 94 05/31/21 00:11 73 05/30/21 23:52 37.0 C 75 16 109/69 95 Laboratory Results Short CBC 05/31/21 Range/Units 05:30 WBC 7.99 (4.8-10.8) K/uL Hgb 14.2 (14.0-18.0) g/dL Hct 42.5 (42-52) % Plt Count 262 (130-400) K/uL BMP 05/31/21 05:30 Sodium 138 Potassium 3.8 Chloride 108 H Carbon Dioxide 29 BUN 12 Creatinine 0.86 Glucose 100 H Calcium 8.5
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
--- NOTE | 2021-05-31 13:21 | Electrocardiogram Report ---
Test Reason : Blood Pressure : / mmHG Vent. Rate : 067 BPM Atrial Rate : 067 BPM P-R Int : 146 ms QRS Dur : 082 ms QT Int : 428 ms P-R-T Axes : 063 010 220 degrees QTc Int : 452 ms Sinus rhythm with Premature supraventricular complexes Left ventricular hypertrophy with repolarization abnormality Abnormal ECG When compared with ECG of 30-MAY-2021 05:54, Premature supraventricular complexes are now Present Confirmed by Sarbjit Philip ([id number]) on 05/31/2021 1:20:53 PM Referred By: REFERRED SELF Confirmed By:Kevin Philip
== END 2021-05-31 11:34 | disposition home or self-care (01) | DRG 176 ==
LOC: ED 11:41 → EDINP 14:51 → 2S 14:52